=== PATIENT | female | born 1990 | race Caucasian/White ===

== ENCOUNTER 2016-06-19 11:56 | Emergency (ER) | payer OTHER ==
[2016-06-19 11:59] VITALS: BP 112/70; PULSE 74; RESP 14; TEMP 97.9; O2SAT 100
--- NOTE | 2016-06-19 12:47 | PD ---
HPI Chief Complaint: Exposure to Blood/Body Fluids Time Seen by Provider: 12:10 Travel History International Travel<30 days: No Contact w/Intl Traveler<30days: No Traveled to known affect area: No History of Present Illness HPI Patient is a 25-year-old female presenting to emergency department for evaluation after possible exposure blood or body fluids. Patient states she was handing the bake room worker a syringe full of saline after the bake room worker had performed a vaginal exam, patient felt something splashed in her eye. Patient states that there was no visible blood on the gloves but there was blood on a Q-tip after the vaginal exam. Patient irrigated her eye for several minutes prior to coming to the emergency department. She has no other complaints at this time [facility] Past Medical History Medical History: Denies Significant Hx Diminished Hearing: Yes (RT EAR PAIN WITH CONGESTION) Immunizations Current: Yes Tetanus Vaccination: < 5 Years ?: Not LMP: 06/11/16 Past Surgical History Body Medical Devices: 2 VASO-VAGAL EPISODES W/HEAVY MENSUS LAST YEAR NOW ON BCP Other Surgery: Yes (IINGUINAL HERNIA) Social History Alcohol Use: No Tobacco Use: No Substance Use: No Allergies-Medications (Allergen,Severity, Reaction): Coded Allergies: No Known Allergies (Verified , 06/19/16) Reported Meds & Prescriptions Reported Meds & Active Scripts Active No Active Prescriptions or Reported Medications Review of Systems Except as stated in HPI: all other systems reviewed are Neg General / Constitutional: Positive: Other (exposure) Physical Exam Narrative GENERAL: Well-nourished, well-developed patient. SKIN: Warm and dry. HEAD: Normocephalic. EYES: No scleral icterus. No injection or drainage. NECK: Supple, trachea midline. No JVD or lymphadenopathy. CARDIOVASCULAR: Regular rate and rhythm without murmurs, gallops, or rubs. RESPIRATORY: Breath sounds equal bilaterally. No accessory muscle use. GASTROINTESTINAL: Abdomen soft, non-tender, nondistended. MUSCULOSKELETAL: No cyanosis, or edema. BACK: Nontender without obvious deformity. No CVA tenderness. Data Data Last Documented VS Vital Signs Date Time Temp Pulse Resp B/P Pulse Ox O2 Delivery O2 Flow Rate FiO2 06/19/16 11:59 97.9 74 14 112/70 100 Room Air MDM Medical Decision Making Medical Screen Exam Complete: Yes Emergency Medical Condition: Yes Interpretation(s) Vital Signs Date Time Temp Pulse Resp B/P Pulse Ox O2 Delivery O2 Flow Rate FiO2 06/19/16 11:59 97.9 74 14 112/70 100 Room Air Differential Diagnosis Exposure versus cellulitis versus needlestick versus other Narrative Course Patient is a 25-year-old female presenting to emergency room for evaluation after possible exposure blood or body fluids while working with an bake room worker prior to arrival. No significant exposure occurred based on patient's report of the situation, patient did irrigate her eye thoroughly prior to coming to the emergency department. Patient is unsure if there was even blood on the obstetricians gloves when she was splashed. She was passing a syringe full of normal saline to the doctor and that could've likely been what she felt in her eye. Patient will postpone pep treatment at this time pending the source patient's test results. Patient is requesting to have her blood work drawn. Patient advised to follow-up with employee med. Diagnosis Primary Impression: Exposure to blood or body fluid Referrals: Employ Med Med/Other Pt SpecificInfo: No Change to Meds Scripts No Active Prescriptions or Reported Meds Condition: Mira Reyes Jun 19, 2016 12:47
== END 2016-06-19 13:04 | disposition home or self-care (01) ==
LOC: NEPB 11:56
DX: T15.91XA Foreign body on external eye, part unspecified, right eye, initial encounter (principal); Z77.21 Contact with and (suspected) exposure to potentially hazardous body fluids; X58.XXXA Exposure to other specified factors, initial encounter; Y93.F9 Activity, other caregiving; Y92.239 Unspecified place in hospital as the place of occurrence of the external cause; Y99.0 Civilian activity done for income or pay
CPT/HCPCS: 99282

== ENCOUNTER 2016-09-20 12:35 | Emergency (ER) | payer OTHER ==
[~2016-09-20] VITALS: Ht 170.2 cm; Wt 56.0 kg
[2016-09-20 12:36] VITALS: BP 108/67; PULSE 80; RESP 16; TEMP 98.3; O2SAT 100
--- NOTE | 2016-09-20 13:27 | PD ---
HPI Chief Complaint: Eye Problems/Injury Time Seen by Provider: 13:23 Travel History International Travel<30 days: No Contact w/Intl Traveler<30days: No History of Present Illness HPI 26-year-old female presents to the emergency department for evaluation of possible blood exposure to her right eye. 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 She was starting an IV on a patient when the blood splattered up and hit her in the face. She is not completely sure if the blood, and to her right eye, but she felt wetness and was concerned. She states she rinsed her eye else after this occurred for several minutes. Patient denies any open sores. No needlestick. She has no chronic medical problems and takes no prescribed medications. She states that the source patient is low risk and recently had a negative HIV test in January. The patient denies any other complaints at this time. PFSH Past Medical History Diminished Hearing: Yes (RT EAR PAIN WITH CONGESTION) Immunizations Current: Yes ?: Unknown Past Surgical History Body Medical Devices: 2 VASO-VAGAL EPISODES W/HEAVY MENSUS LAST YEAR NOW ON BCP Other Surgery: Yes (IINGUINAL HERNIA) Social History Alcohol Use: No Tobacco Use: No Substance Use: No Allergies-Medications (Allergen,Severity, Reaction): Coded Allergies: No Known Allergies (Verified , 09/20/16) Reported Meds & Prescriptions Reported Meds & Active Scripts Active No Active Prescriptions or Reported Medications Review of Systems Except as stated in HPI: all other systems reviewed are Neg Physical Exam Narrative GENERAL: Well-nourished, well-developed female patient, ambulatory. Afebrile. SKIN: Focused skin assessment warm/dry. HEAD: Normocephalic. Atraumatic. EYES: No scleral icterus. No injection or drainage. NECK: Supple, trachea midline. No JVD or lymphadenopathy. CARDIOVASCULAR: Regular rate and rhythm without murmurs, gallops, or rubs. RESPIRATORY: Breath sounds equal bilaterally. No accessory muscle use. Lungs sounds are clear to auscultation. GASTROINTESTINAL: Abdomen soft, non-tender, nondistended. MUSCULOSKELETAL: No cyanosis, or edema. BACK: Nontender without obvious deformity. No CVA tenderness. Data Data Last Documented VS Vital Signs Date Time Temp Pulse Resp B/P Pulse Ox O2 Delivery O2 Flow Rate FiO2 09/20/16 12:36 98.3 80 16 108/67 100 Room Air [facility] Medical Decision Making Medical Screen Exam Complete: Yes Emergency Medical Condition: Yes Medical Record Reviewed: Yes Differential Diagnosis Body fluid exposure versus medical clearance versus eye irritation Narrative Course 26-year-old female presents to the emergency department for evaluation after she got a patient's blood in her right eye while starting an IV. Due to minor exposure, I do not recommend PEP treatment at this time. The patient agrees with this. Exposure packet will be completed and lab work will be done. Patient is to follow-up with employee health. She is return for any worsening symptoms. She verbalizes agreement. Diagnosis Primary Impression: Exposure to blood or body fluid Referrals: Primary Care Physician call for appointment Patient Instructions: Body Substance Exposure (ED), General Instructions Additional Instructions: Follow-up with employee health. Return the emergency department for any emergent complaints. Med/Other Pt SpecificInfo: No Change to Meds Scripts No Active Prescriptions or Reported Meds Disposition: 01 DISCHARGE HOME Condition: Stable Jo Ann Valle Sep 20, 2016 13:26
== END 2016-09-20 14:09 | disposition home or self-care (01) ==
LOC: NEPD 12:35
DX: T15.91XA Foreign body on external eye, part unspecified, right eye, initial encounter (principal); Z77.21 Contact with and (suspected) exposure to potentially hazardous body fluids; X58.XXXA Exposure to other specified factors, initial encounter; Y93.F9 Activity, other caregiving; Y92.230 Patient room in hospital as the place of occurrence of the external cause; Y99.0 Civilian activity done for income or pay
CPT/HCPCS: 99282